=== PATIENT | female | born 1985 | race African-American/Black ===

== ENCOUNTER 2017-06-26 18:47 | Emergency (ER) | payer MEDICAID ==
[~2017-06-26] VITALS: Ht 162.6 cm; Wt 64.0 kg
[~2017-06-26 18:47] MED LIST: IBUP-777; NITR-82
[2017-06-26] MEDS ORDERED: MAGNESIUM/ALUMINUM HYDROXIDE/SIMETHICONE 30ML UDC PO STA (22:48)
[2017-06-26] MEDS ORDERED: ONDANSETRON HCL 4MG/2ML VIAL IV STA (22:48)
[2017-06-26] MEDS ORDERED: SODIUM CHLORIDE 0.9% 1,000 ML IV ONE (22:48)
[2017-06-26] MEDS ORDERED: FAMOTIDINE 20MG/2ML VIAL IV SCH (23:00)
[2017-06-26 23:15] LABS: BASOPHILS % 0.8 % (0.0-2.0); EOSINOPHILS % 0.5 % (0.0-5.0); HEMATOCRIT. 33.9 % (36.0-48.0); HEMOGLOBIN. 11.5 g/dL (12.0-16.0); LYMPHOCYTES % 31.4 % (20.0-50.0); MEAN CORPUSCULAR HEMOGLOBIN 30.4 pg (28.0-32.0); MEAN CORPUSCULAR VOLUME 89.2 fL (81.0-99.0); MEAN PLATELET VOLUME 7.9 fl (7.4-10.4); MONOCYTES % 7.1 % (2.0-8.0); NEUTROPHILS % 60.2 % (40.0-76.0); PLATELET 273 x1000/uL (130-400); RED CELL DISTRIBUTION WIDTH 12.9 % (11.6-14.6)
[2017-06-26 23:19] LABS: CHLORIDE 104 mEq/L (98-107)
[2017-06-26 23:20] LABS: CARBON DIOXIDE 24 mEq/L (21-32)
[2017-06-26 23:21] LABS: ETHANOL BLOOD < 10 mg/dL
[2017-06-26 23:26] LABS: PROTHROMBIN TIME 10.8 sec (9.4-11.6)
[2017-06-26 23:54] LABS: CLARITY URINE CLEAR (CLEAR); COLOR URINE YELLOW (YELLOW); KETONES URINE 2+ (NEGATIVE); LEUKOCYTE ESTERASE URINE TRACE (NEGATIVE); NITRITE URINE NEGATIVE (NEGATIVE); OCCULT BLOOD URINE NEGATIVE (NEGATIVE); PROTEIN URINE NEGATIVE (NEGATIVE); SPECIFIC GRAVITY URINE 1.016 (1.005-1.030); UROBILINOGEN URINE 0.2 E.U./dL (0.2-1.0)
[2017-06-27 00:20] LABS: MONOTEST NEGATIVE (NEGATIVE)
[2017-06-27] MEDS ORDERED: SODIUM CHLORIDE 0.9% 1,000 ML IV ONE (00:29)
[2017-06-27 01:05] LABS: *AMPHETAMINES SCREEN URINE NEGATIVE (NEGATIVE); *BARBITURATES SCREEN URINE NEGATIVE (NEGATIVE); *BENZODIAZEPINES SCREEN URINE NEGATIVE (NEGATIVE); *COCAINE SCREEN URINE NEGATIVE (NEGATIVE); METHADONE URINE SCREEN NEGATIVE (NEGATIVE); OPIATES URINE SCREEN NEGATIVE (NEGATIVE); PHENCYCLIDINE URINE SCREEN NEGATIVE (NEGATIVE)
[2017-06-27 01:40] LABS: CANNABINOID URINE SCREEN PRESUMTIVE POSITIVE (NEGATIVE)
[2017-06-27 01:52] LABS: B-HCG QUANTITATIVE 55760 mIU/mL (<3)
[2017-06-27 03:08] VITALS: BP 98/56
[2017-06-27] MEDS ORDERED: CEFTRIAXONE 1 G PREMIX 50 ML IV SCH (03:45)
== END 2017-06-27 05:30 | disposition home or self-care (01) ==
LOC: ER 20:00
DX: O99.511 Diseases of the respiratory system complicating pregnancy, first trimester (principal); J02.9 Acute pharyngitis, unspecified; O21.9 Vomiting of pregnancy, unspecified; O26.891 Other specified pregnancy related conditions, first trimester; R14.0 Abdominal distension (gaseous); R79.1 Abnormal coagulation profile; O99.611 Diseases of the digestive system complicating pregnancy, first trimester; K21.9 Gastro-esophageal reflux disease without esophagitis; F12.10 Cannabis abuse, uncomplicated; Z88.0 Allergy status to penicillin; Z3A.01 Less than 8 weeks gestation of pregnancy; Z98.890 Other specified postprocedural states
CPT/HCPCS: 36415; 76801; 76817; 80053; 80305; 81001; 81025; 83690; 84702; 85025; 85610; 86308; 86850; 86900; 86901; 87070; 87430; 87804; 96365; 96375; 99285; G0482; J0696; J3490; J2405

== ENCOUNTER 2018-07-10 22:39 | Emergency (ER) | payer MEDICAID | END 2018-07-11 00:18 | disposition left against medical advice (07) | LOC: ER 22:39 | DX: Z53.21 Procedure and treatment not carried out due to patient leaving prior to being seen by health care provider (principal); Z88.0 Allergy status to penicillin ==